=== PATIENT | male | born 1985 | race African-American/Black ===

== ENCOUNTER → 2017-09-28 | Outpatient (CLI) | payer BC | LOC: FIMAGING 08:32 | PROVIDERS: ATTEND Internal Medicine | DX: R07.81 Pleurodynia (principal) | CPT/HCPCS: 71100; 78300; A9503 ==

== ENCOUNTER → 2017-10-16 | Outpatient (CLI) | payer BC | LOC: FIMAGING 10:10 | PROVIDERS: ATTEND Internal Medicine | DX: R07.89 Other chest pain (principal) ==

== ENCOUNTER 2018-07-27 10:05 | Emergency (ER) | payer BC, OTHER ==
--- NOTE | 2018-07-27 10:36 | EDPHY ---
H & P Time Seen by Provider: 07/27/18 10:21 HPI/ROS: CHIEF COMPLAINT: Chest pain HISTORY OF PRESENT ILLNESS: Patient presents with 2 episodes of chest discomfort 1 last night before midnight and then 1 this morning at 8:00 a.m.. He says that it felt like "needles poking my chest" just inferior and medial to his left nipple and breast. Each episode lasted about 10 min. Not associated with shortness of breath or cough or fever or chills or hemoptysis or leg swelling. Symptoms currently gone. Not better or worse with anything. REVIEW OF SYSTEMS: Eye: no change in vision ENT: no sore throat Cardiac: No palpitations or syncope Pulmonary: no cough or SOB Abdomen: no vomiting, diarrhea, abdominal pain Musculoskeletal: Chronic back pain unchanged Skin: no rash Neuro: no headache Constitutional: no fever : no urinary symptoms A comprehensive 10 point review of systems is otherwise negative aside from elements mentioned in the history of present illness. PAST MEDICAL HISTORY: Diabetes type 2 and hypertension, chronic back pain, knee surgery for a meniscus last year in January Family history negative for premature coronary disease or venous thromboembolism Social history: Nonsmoker, no recent travel or immobilization, no drugs or cocaine General Appearance: Alert and conversant, cooperative. Eyes: No scleral icterus. ENT, Mouth: Normal mucous membranes. Respiratory: Normal respiratory effort, breath sounds equal, lungs are clear to auscultation. No wheezing. Cardiovascular: Regular rate and rhythm. Gastrointestinal: Abdomen is soft and non tender. Neurological: Alert, face symmetric, normal motor and sensory in extremities. Skin: Warm and dry, no rashes. Musculoskeletal: No peripheral edema. No calf tenderness. Not tender on the left breast to palpation. Psychiatric: Not agitated. Emergency Department course/MDM: Differential diagnosis considered for chest pain including but not limited to myocardial ischemia, aortic dissection, pericarditis, pulmonary embolus, chest wall pain, pleural inflammation and pulmonary infectious causes. PERC negative for pulmonary embolism. HEART score is 0 points for history, 1 point for EKG, 0 points for age, 1 for risk factors of diabetes and hypertension, 0 for troponin; total score is 2. 1146: Re-evaluated. Patient has a HEART score of 2. The shared decision- making instrument was personally reviewed with the patient by myself, including the risk of MACE. He requests discharge at this time after single troponin. Patient states understanding and agreement with the chosen disposition. Smoking Status: Never smoked Constitutional: Initial Vital Signs Temperature (C) 36.7 C 07/27/18 10:08 Heart Rate 65 07/27/18 10:08 Respiratory Rate 18 07/27/18 10:08 Blood Pressure 151/109 H 07/27/18 10:08 O2 Sat (%) 98 07/27/18 10:08 O2 Delivery Mode Room Air Allergies/Adverse Reactions: No Known Allergies Allergy (Verified 07/27/18 10:07) Home Medications: Medication Instructions Recorded Tramadol HCl 07/27/18 Medical Decision Making - Diagnostics EKG Interpretation: 12-lead EKG interpreted by me; official reading is in computer system. My interpretation is sinus rhythm with LVH and nonspecific T-wave abnormalities likely due to that, rate 71. Imaging Results: Imaging Impressions Chest X-Ray 07/27/18 10:34 Impression: Clear lungs. No explanation for pain. Imaging: I viewed and interpreted images myself - Data Points Laboratory Results: Laboratory Results 07/27/18 05:30 07/27/18 05:30 07/27/18 07/27/18 07/27/18 10:54 05:30 05:30 WBC 3.90 10^3/uL 10^3/uL (3.80-9.50) RBC 6.01 10^6/uL 10^6/uL (4.40-6.38) Hgb 16.8 g/dL g/dL (13.7-17.5) Hct 49.3 % % (40.0-51.0) MCV 82.0 fL fL (81.5-99.8) MCH 28.0 pg pg (27.9-34.1) MCHC 34.1 g/dL g/dL (32.4-36.7) RDW 13.3 % % (11.5-15.2) Plt Count 193 10^3/uL 10^3/uL (150-400) MPV 11.4 fL fL (8.7-11.7) Neut % (Auto) 41.8 % % (39.3-74.2) Lymph % (Auto) 43.6 % % (15.0-45.0) Motley % (Auto) 11.0 % % (4.5-13.0) Eos % (Auto) 3.1 % % (0.6-7.6) Baso % (Auto) 0.5 % % (0.3-1.7) Nucleat RBC Rel Count 0.0 % % (0.0-0.2) Absolute Neuts (auto) 1.63 10^3/uL L 10^3/uL (1.70-6.50) Absolute Lymphs (auto) 1.70 10^3/uL 10^3/uL (1.00-3.00) Absolute Monos (auto) 0.43 10^3/uL 10^3/uL (0.30-0.80) Absolute Eos (auto) 0.12 10^3/uL 10^3/uL (0.03-0.40) Absolute Basos (auto) 0.02 10^3/uL 10^3/uL (0.02-0.10) Absolute Nucleated RBC 0.00 10^3/uL 10^3/uL (0-0.01) Immature Gran % 0.0 % % (0.0-1.1) Immature Gran # 0.00 10^3/uL 10^3/uL (0.00-0.10) Sodium 138 mEq/L mEq/L (135-145) Potassium 4.1 mEq/L mEq/L (3.5-5.2) Chloride 105 mEq/L mEq/L (97-110) Carbon Dioxide 23 mEq/l mEq/l (22-31) Anion Gap 10 mEq/L mEq/L (6-14) BUN 13 mg/dL mg/dL (7-23) Creatinine 0.9 mg/dL mg/dL (0.7-1.3) Estimated GFR > 60 Glucose 129 mg/dL H mg/dL (70-100) Calcium 9.8 mg/dL mg/dL (8.5-10.4) POC Troponin I 0.00 ng/mL ng/mL (0.00-0.08) Point of Care Test Results: Chemistry 07/27/18 10:54 POC Troponin I 0.00 ng/mL ng/mL (0.00-0.08) Departure - Departure Disposition: Home, Routine, Self-Care Clinical Impression: Chest pain Qualifiers: Chest pain type: unspecified Qualified Code(s): R07.9 - Chest pain, unspecified Condition: Good Instructions: Chest Pain (ED) Additional Instructions: Please follow-up with your doctor or Cardiology next week Monday in the office. Referrals: Nayana Yuen MD [Primary Care Provider] - As per Instructions Mark Anne MD [Medical Doctor] - As per Instructions
[2018-07-27 10:46] LABS: PLATELET COUNT 193 10^3/uL (150-400)
--- NOTE | 2018-07-27 11:48 | CPEKG ---
Test Reason : OPEN Blood Pressure : / mmHG Vent. Rate : 071 BPM Atrial Rate : 072 BPM P-R Int : 165 ms QRS Dur : 102 ms QT Int : 362 ms P-R-T Axes : 029 007 -38 degrees QTc Int : 394 ms Sinus rhythm Probable left ventricular hypertrophy Nonspecific T abnormalities, diffuse leads Anterior ST elevation, probably due to LVH Confirmed by Lonnie Aleman ([id number]) on 07/27/2018 11:47:34 AM Referred By: Lonnie Aleman Confirmed By:Lonnie Aleman
[2018-07-27 11:54] VITALS: BP 139/94
== END 2018-07-27 11:53 | disposition home or self-care (01) ==
DX: R07.89 Other chest pain (principal); E11.9 Type 2 diabetes mellitus without complications; I10 Essential (primary) hypertension; M54.9 Dorsalgia, unspecified; G89.29 Other chronic pain
CPT/HCPCS: 84484-ER

== ENCOUNTER 2018-12-11 14:56 | Emergency (ER) | payer OTHER | END 2018-12-11 15:34 | disposition home or self-care (01) ==